=== PATIENT | female | born 1945 | race Caucasian/White ===

== ENCOUNTER 2025-02-03 08:38 | Emergency (ER) | payer MEDICARE, OTHER, SELFPAY ==
--- OUTSIDE RECORDS SUMMARY | 2025-02-03 08:47 | XMS_ITS | Encounter Summary ---
Author Organization [facility] Address [address] [place] [address] Care Team Providers Care Machine Tracer Name Role Phone Bhavik Romero MD Primary Care Provider [phone] Reason for Visit * Reason Onset Date Comments Appointment 03/05/2023 Encounter Details Date Type Department Care Team (Late st Contact Info) Description 03/05/2023 Telephone [facility] [address] [place] [address] [phone] Russell Emerson MD [address] [place] [phone] Appointment Social History Tobacco Use Types Packs/Day Years Used Date Smoking Tobacco: Never Smokeless Tobacco: Never Alcohol Use Standard Drinks/Week Comments No 0 (1 standard drink = 0.6 oz pur e alcohol) Comments Unknown Sex and Gender Information Value Date Recorded Sex Assigned at Not on file Legal Sex Female 12:45 AM CDT Gender Identity Not on file Sexual Orientation Not on file documented as of this encounter Miscellaneous Notes * Telephone Encounter - Vandana Woodward - 03/06/2023 10:09 AM CDT I was unable to reach PT yesterday to sched and consult spot is no longer available. Would there lea work in time for Dr Emerson this week? I will schedule it before I call the PT Thank you! * Telephone Encounter - Vadnana Woodward - 03/05/2023 3:47 PM CDT Unable to contact PT to schedule appts. I will reach out again this afternoon. * Telephone Encounter - Vandana Woodward - 03/05/2023 9:[address] Gardner is requesting for this PT to be seen by Dr Emerson this week [facility] but will goto [place] if unavailable. Referral: Visual field loss, possible glaucoma vs old occlusive event Thank you! documented in this encounter Plan of Treatment Upcoming Encounters Date Type Department Care Team (Late st Contact Info) Description 04/23/2025 12:50 PM CDT Clinical Support [facility] [address] [place] [phone] Russell Emerson MD [address] [place] [phone] 04/23/2025 1:15 PM CDT Office Visit [facility] [place] [facility] [address] [place] [phone] John Awan MD [address] [place] [phone] 04/23/2025 1:25 PM CDT Clinical Support [facility] [place] [facility] Optometry [address] [place] [phone] 09/21/2025 9:30 AM HYDROELECTRIC STATION CHIEF Office Visit [facility] [address] [facility] [place] [id number] Jesús Gardner, OD [address] [place] [address] documented as of this encounter Visit Diagnoses Not on filedocumented in this encounter Care Teams Machine Tracer Relationship Specialty Start Date End Date Bhavik Romero MD PCP - General 11/02/10 documented as of this encounter
--- OUTSIDE RECORDS SUMMARY | 2025-02-03 08:47 | XMS_ITS | Referral Summary ---
Author Organization [facility] [place] [address] Care Team Providers Care Accounting Advisory Services Manager Name Role Phone SierrarBhavik MD Primary Care Provider [phone] Source Comments The [facility] EMR consists of medical records from all [facility] ([facility]), the [facility] ([facility]), [facility], as well as other affiliates or partners, to include: [facility] in [place], [place], [facility], [facility] F[facility], [facility], [facility] Aesthectics and Plastic Surgery, [facility], [facility], and [facility] [employer]. The EMR may not contain all information available for this patient pursuant to the Care Everywhere program, as well as varying phases of implementation.[facility] Allergies Active Allergy Reactions Criticality Noted Date Comments Ciprofloxacin OTHER Medium 06/02/2020 Patient does not remember type of reaction Medications * Medications may not be up to date as of this document. Always verifycurrent medications with the patient. Atenolol (Tenormin) 50 MG tab Take 50 mg by mouth one time daily. Active Simvastatin (Zocor) 40 MG tab Take 80 mg by mouth . Active [place]in-3 Fatty Acids (Fish Oil) (Fish Oil) 1000 MG cap Take 1,000 mg by mouth 2 times daily. Active Aspirin EC 81 MG delayed release tab Take 81 mg by mouth 2 times daily . Active Lecithin Concentrate 400 MG cap Take 400 mg by mouth 2 times daily. Active Cholecalciferol (Vitamin D3) 10 MCG (400 UNIT) tab Take 50 mcg by mouth one time daily . Active Garlic Oil 1000 MG cap Take 1,000 mg by mouth one time daily. Active Biotin 1000 MCG tab Take 1,000 mcg by mouth 2 times daily. Active Dexamethasone 0.5 MG/5ML elixir RINSE WITH 5ML BY MOUTH TWICE DAILY FOR 1 MINUTE AND SPIT. USE BEFORE FLUOCINONIDE GEL. 0 Active Fluocinonide 0.05 % gel Apply 3 times daily as needed. Active Nitroglycerin (Nitrostat) 0.[address] 0.4 mg under tongue every 5 minutes as needed. Active Vitamin B Complex with C (SM Super B) tab Take 1 tab by mouth one time daily. Active Multivitamin with Minerals tab Take 1 tab by mouth one time daily. Active metroNIDAZOLE (Noritate) 1 % cream Apply as needed. Act chirag Social History Tobacco Use Types Packs/Day Years Used Date Smoking Tobacco: Never Financial Resource Strain Answer Date R ecorded Overall Financial Strain 99 022 Skipped Doctor's Visit 3 2 Skipped Medication due to cost 3 0 10/30/2021 Utility Shut-offs 3 10/30/2021 Comments Unknown Sex and Gender Information Value Date Recorded Sex Assigned at Not on file Legal Sex Female 4:09 PM CDT Gender Identity Not on file Sexual Orientation Not on file Plan of Treatment Not on file Insurance MEDICARE [facility] Care Teams Accounting Advisory Services Manager Relationship Specialty Start Date End Date Bhavik Romero MD [address] [id number] PCP - General Cardiovascular Med 04/20/20
--- OUTSIDE RECORDS SUMMARY | 2025-02-03 08:47 | XMS_ITS | Clinical Summary ---
Author Organization [facility] [place] [address] Care Team Providers Care Workers Compensation Coordinator Name Role Phone SierrarBhavik MD Primary Care Provider [phone] Source Comments The [facility] EMR consists of medical records from all [facility] ([facility]), the [facility] ([facility]), [facility], as well as other affiliates or partners, to include: [facility] in [place], [place], [facility], [facility], [facility], [facility] Aesthectics and Plastic Surgery, [facility], [facility]), [facility] [place] [facility], and [facility]. The EMR may not contain all information available for this patient pursuant to the Care Everywhere program, as well as varying phases of implementation.[facility] Allergies Active Allergy Reactions Criticality Noted Date [...] Take 80 mg by mouth . Active Lovell-3 Fatty Acids (Fish Oil) (Fish Oil) 1000 [...] of Treatment Not on file Insurance MEDICARE [facility] Care Teams Workers Compensation Coordinator Relationship Specialty Start Date End Date Bhavik Romero MD [address] [id number] PCP - General Cardiovascular Med 04/20/20
[2025-02-03 08:50] VITALS: BP 166/60; PULSE 62; TEMP 36.8; O2SAT 97; BMI 23.6
--- NOTE | 2025-02-03 09:02 | ED.GENADUL1 ---
HPI HPI - General Adult General Chief complaint: Urogenital-Female Stated complaint: UTI COMPLAINTS Time Seen by Provider: 02/03/25 08:46 Source: patient Mode of arrival: walk-in History of Present Illness HPI narrative: 80-year-old female presents for dysuria and frequency of urination. She has had no fever or back pain. She has been recently on Keflex for UTI and feels like it never really went away. Related Data Home Medications ?Medication ?Instructions ?Recorded ?Confirmed aspirin 81 mg tablet,delayed 81 mg PO DAILY 02/03/25 02/03/25 release (Adult Aspirin Regimen) atenolol 50 mg tablet mg 02/03/25 simvastatin 80 mg tablet mg 02/03/25 Previous Rx's ?Medication ?Instructions ?Recorded ciprofloxacin HCl 250 mg tablet 250 mg PO BID #14 tabs 02/03/25 (Cipro) Allergies Allergy/AdvReac Type Severity Reaction Status Date / Time No Known Drug Allergies Allergy Verified 02/03/25 08:49 Review of Systems ROS Narrative A ten point review of systems is negative except as noted above. PFSH PFSH Social History Little interest or pleasure in doing things: not at all Feeling down, depressed, or hopeless: not at all Exam Narrative Exam Narrative: Nurses note and vital signs reviewed and patient is not hypoxic. General: The patient appears well and in no apparent distress. Patient is sitting on a chair and appears comfortable Skin: Warm, dry, no pallor noted. There is no rash noted. Head: Normocephalic, atraumatic Eye: Normal conjunctiva, no drainage Ears, Nose, Mouth, and Throat: oral mucosa is moist. Nares patent. Cardiovascular: Regular Rate and Rhythm Respiratory: Patient is in no distress, no accessory muscle use, lungs are clear to auscultation, no wheezing, rales or rhonchi Back: non-tender GI: Soft and nontender Musculoskeletal: The patient has no evidence of calf tenderness, no pitting edema, symmetrical pulses noted bilaterally Neurological: A&O, normal speech Psychiatric: Cooperative Constitutional Vital Signs, click to edit/add: Last Vital Signs Temp 98.2 F 02/03/25 08:50 Pulse 62 02/03/25 08:50 Resp 16 02/03/25 08:50 BP 166/60 H 02/03/25 08:50 Pulse Ox 97 02/03/25 08:50 O2 Del Method Room Air 02/03/25 08:50 Course Vital Signs Vital signs: Vital Signs Temperature 98.2 F 02/03/25 08:50 Pulse Rate 62 02/03/25 08:50 Respiratory Rate 16 02/03/25 08:50 Blood Pressure 166/60 H 02/03/25 08:50 Pulse Oximetry 97 02/03/25 08:50 Oxygen Delivery Method Room Air 02/03/25 08:50 Temperature 98.2 F 02/03/25 08:50 Pulse Rate 62 02/03/25 08:50 Respiratory Rate 16 02/03/25 08:50 Blood Pressure 166/60 H 02/03/25 08:50 Pulse Oximetry 97 02/03/25 08:50 Oxygen Delivery Method Room Air 02/03/25 08:50 Medical Decision Making MDM Narrative Medical decision making narrative: UTI is identified. She has recently been on 2 different antibiotics, Augmentin and Keflex. She will be prescribed Cipro with culture pending. She was given the option of a dose of IV Cipro here and elects to take that dose now. Treatment diagnosis and follow-up were discussed with the patient. Differential Diagnosis Differential Diagnosis: UTI, cystitis, pyelonephritis. Lab Data Lab results reviewed: Yes I reviewed the patient's lab results Labs: Lab Results 02/03/25 Range/Units 08:45 Urine Color Brown A (YELLOW) Urine Clarity Cloudy A (CLEAR) Urine pH Color interference A (5.0-9.0) Ur Specific [place] 1.025 (1.005-1.025) Urine Protein Color interference A (NEG/TRACE) mg/dL Urine Glucose (UA) Color interference A (NEGATIVE) mg/dL Urine Ketones Color interference A (NEGATIVE) mg/dL Urine Occult Blood Color interference A (NEGATIVE) Urine Nitrite Color interference A (NEGATIVE) Urine Bilirubin Color interference A (NEGATIVE) Urine Urobilinogen Color interference A (0.2-1.0) EU/dL Ur Leukocyte Esterase Color interference A (NEGATIVE) Urine RBC >100 A (0-2) #/HPF Urine WBC 10-20 A (NONE SEEN) #/HPF Ur Squamous Epith Cells Rare (NONE/RARE) #/LPF Urine Crystals None seen (None Seen) #/HPF Urine Bacteria Trace A (NONE SEEN) #/HPF Urine Casts None seen (NONE SEEN) #/LPF Urine Mucus None seen (NONE SEEN) Ur Culture Indicated? Yes-[facility] [place] Discharge Plan Discharge Chief Complaint: Urogenital-Female Clinical Impression: Urinary tract infection Patient Disposition: Home, Self-Care Time of Disposition Decision: 09:28 Condition: Good Mode of Transportation: Private Vehicle Prescriptions / Home Meds: New ciprofloxacin HCl [Cipro] 250 mg tablet 250 mg PO BID Qty: 14 0RF No Action simvastatin 80 mg tablet atenolol 50 mg tablet aspirin [Adult Aspirin Regimen] 81 mg tablet,delayed release (DR/EC) 81 mg PO DAILY Patient Comments: take 2 daily Print Language: Persian Referrals: Physician,Non-Staff, MD [Primary Care Provider] - 1 week
[2025-02-03 09:13] LABS: Clarity Urine CLOUDY (CLEAR); Color Urine BROWN (YELLOW); Specific Gravity Urine 1.025 (1.005-1.025)
[2025-02-03 09:14] LABS: Bilirubin Urine COLOR INTERFERENCE (NEGATIVE); Blood Urine COLOR INTERFERENCE (NEGATIVE); Glucose Urine UA COLOR INTERFERENCE mg/dL (NEGATIVE); Ketones Urine COLOR INTERFERENCE mg/dL (NEGATIVE); Leukocyte Esterase Urine COLOR INTERFERENCE (NEGATIVE); Nitrite Urine COLOR INTERFERENCE (NEGATIVE); Protein Urine COLOR INTERFERENCE mg/dL (NEG/TRACE); Urobilinogen Urine COLOR INTERFERENCE EU/dL (0.2-1.0); pH Urine COLOR INTERFERENCE (5.0-9.0)
[2025-02-03 09:22] LABS: Bacteria Urine TRACE #/HPF (NONE SEEN); Cast Seen? NONE SEEN #/LPF (NONE SEEN); Crystals Seen? None Seen #/HPF (None Seen); Mucus Urine NONE SEEN (NONE SEEN); RBC Urine >100 #/HPF (0-2); Squamous Epithelial Cell Urine RARE #/LPF (NONE/RARE); Urine Culture Indicated YES-FRMC
[2025-02-03] MEDS: CIPROFLOXACIN IN 5 % DEXTROSE 400 MG/200 ML PREMIX 200 MG IV (09:44)
== END 2025-02-03 10:59 | disposition home or self-care (01) ==
PROVIDERS: Emergency Provider Emergency Medicine
DX: N39.0 Urinary tract infection, site not specified (principal); R30.0 Dysuria; R35.0 Frequency of micturition
CPT/HCPCS: 81001; 87086; 96365; 99284; J0744